=== PATIENT | female | born 2000 | race Caucasian/White ===

== ENCOUNTER 2019-05-07 19:13 | Emergency (ER) | payer OTHER, BC ==
[2019-05-07 21:15] VITALS: BP 131/73
== END 2019-05-07 21:35 | disposition home or self-care (01) | DRG 552 ==
LOC: ED 19:13
DX: S16.1XXA Strain of muscle, fascia and tendon at neck level, initial encounter (principal); S09.90XA Unspecified injury of head, initial encounter; V58.5XXA Driver of pick-up truck or van injured in noncollision transport accident in traffic accident, initial encounter